=== PATIENT | male | born 1995 | race Caucasian/White ===

== ENCOUNTER 2024-07-08 20:49 | Emergency (ER) | payer OTHER, SELFPAY ==
[2024-07-08 21:05] VITALS: BP 102/59; PULSE 121; RESP 20; TEMP 37.6; O2SAT 98
[2024-07-09 04:10] VITALS: BP 104/68; PULSE 100; RESP 20; TEMP 37.7; O2SAT 97
[2024-07-09 04:14] VITALS: BP 104/68; PULSE 110; RESP 17; O2SAT 96
--- OUTSIDE RECORDS SUMMARY | 2024-07-09 04:30 | XMS_ITS | Encounter Summary ---
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
--- OUTSIDE RECORDS SUMMARY | 2024-07-09 04:30 | XMS_ITS | Encounter Summary ---
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 Gender Identity Not on file Sexual Orientation Not on file documented as of this encounter Plan of Treatment Not on file documented as of this encounter Visit Diagnoses Not on filedocumented in this encounter Additional Health Concerns Infection Onset Date Last Indicated Resolved Time COVID-19 Rule Out 05/23/2021 05/23/2021 05/24/2021 11:08 PM HOME SCHOOL COORDINATOR documented as of this encounter Care Teams Dumping Machine Operator Relationship Specialty Start Date End Date Gloria Dumont DO [address] [place] [address] PCP - General FAMILY PRACTICE 12/04/18 documented as of this encounter
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
--- OUTSIDE RECORDS SUMMARY | 2024-07-09 04:30 | XMS_ITS | Clinical Summary ---
Author Organization [facility] Address [address] [place] [id number] Care Team Providers Care Fluid Power Mechanic Name Role Phone DumontGloria french DO Primary Care Provider [phone]- [phone] Allergies Active Allergy Reactions Criticality Noted Date Comments Prochlorperazine Unknown 05/30/2021 Sumatriptan Nausea and Vomiting 05/30/2021 Nsaids GI Bleed 05/30/2021 Only has allergy to PO NSAIDS. Carisoprodol Palpitations,Tachyca rdi a Low 05/30/2021 Tramadol Unknown 05/30/2021 Triptans Nausea and Vomiting 05/30/2021 Medications omeprazole 40 MG capsule Take 1 capsule (40 mg total) by mouth daily. 1 11/07/2018 Active pregabalin (LYRICA) 100 MG capsule Take 1 capsule (100 mg total) by mouth 2 (two) times daily. 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 Gender Identity Not on file Sexual Orientation Not on file Last Filed Vital Signs Vital Sign Reading Time Taken Comments Blood Pressure 131/81 08/03/2022 8:50 PM CDT Pulse 96 08/03/2022 8:50 PM CDT Temperature 36.5 C (97.7 F) 08/03/2022 6:38 PM CDT Respiratory Rate 15 08/03/2022 8:50 PM CDT Oxygen Saturation 97% 08/03/2022 8:50 PM CDT Inhaled Oxygen Concentration - - Weight 108.9 kg (240 lb) 08/03/2022 6:38 PM CDT Height 175.3 cm (5' 9 ) 08/03/2022 6:38 PM CDT Body Mass Index 35.44 08/03/2022 6:38 PM CDT Plan of Treatment Health Maintenance Due Date Last Done Comments Annual Physical 01/17/1996 Hepatitis C 2011 Hepatitis B Vaccines (1 of 3 - 19+ 3-dose series) 01/17/2012 DTaP, Tdap and Td Vaccines ( 2 - Td or Tdap) 09/08/2021 09/09/2011 COVID-19 Vaccine (2 - 2023-2 5 season) 2024 09/29/2020 Influenza Adult (#1) 2024 02/01/2012, 01/31/2012, 02/24/2011 Meningococcal Vaccine Completed 09/09/2011 HPV Vaccines Aged Out No longer eligi ble based on patient's age to complete this topic Meningococcal B Vaccine Aged Out No l onger eligible based on patient's age to complete this topic Pneumococcal Vaccine: Pediatrics (0 to 5 Years) and At-Risk Patients (6 to 64 Years) Aged Out No longer eligible b ased on patient's age to complete this topic RSV Immunizations Under 20 Months Aged Out No longer eligible b ased on patient's age to complete this topic Goals Goal Patient Goal Type Associated Problems Recent Progress Patient-Stated? Author Patient will return to prior living situation and remain independent in ADLs upon discharge from hospital General Claribel Lynch RN Medical Devices Implanted Type Area Wire Mesh Filter Fabricator Device Identifier Shelf Expiration Date Model / Serial / Lot [place] Suture 2.3mm 2 Iconix [facility] - [id number] Implanted:Qty : 1 on 05/24/2021 by Elias Aguero MD at [facility] [place] Right: Shoulder [employer] - DIV [id number] 01/20/2023 [id number] / / [id number] 4.0 Mm Locking Screws Self Tapping Implanted:Qty : 1 on 05/24/2021 by Elias Aguero MD at [facility] Right: Shoulder [employer] DIV [employer] DIPESH [id number] / N/A / N/A 4.0 Mm Locking Screw Implanted:Qty : 1 on 05/24/2021 by Elias Aguero MD at [facility] Right: Shoulder [employer] - DIV [employer] DIPESH [id number] / N/A / N/A 4.0 Mm Locking Screw Implanted:Qty : 1 on 05/24/2021 by Elias Aguero MD at [facility] Right: Shoulder [employer] - DIV [employer] DIPESH [id number] / N/A / N/A 4.0 Mm Locking Screw Self Tapping Implanted:Qty : 1 on 05/24/2021 by Elias Aguero MD at [facility] Right: Shoulder [employer] - DIV [employer] DIPESH [id number] / N/A / N/A 3.5 Mm Cortical Screw, Self Tapping Implanted:Qty : 1 on 05/24/2021 by Elias Aguero MD at [facility] Right: Shoulder [employer] - DIV [employer] DIPESH [id number] / N/A / N/A 4.0 Mm Locking Screws Self Tapping Implanted:Qty : 1 on 05/24/2021 by Elias Aguero MD at [facility] Right: Shoulder [employer] - DIV [employer] DIPESH [id number] / / 3.5 Mm Locking Screw Implanted:Qty : 2 on 05/24/2021 by Elias Aguero MD at [facility] Right: Shoulder [employer] - DIV [employer] DIPESH [id number] / / 4.0 Cancellous Screw Implanted:Qty : 1 on 05/24/2021 by Elias Aguero MD at [facility] Right: Shoulder [employer] - DIV [employer] DIPESH [id number] / / Iconix Speed [place] Suture 2.3 Implanted:Qty : 1 on 05/24/2021 by Elias Aguero MD at [facility] Right: Shoulder [employer] - DIV [employer] DIPESH [id number] 07/24/2021 [id number] / / [id number] Proximal Lateral Humerus Plate 4- Hole Implanted:Qty : 1 on 05/24/2021 by Elias Aguero MD at [facility] Right: Shoulder [employer] - DIV [employer] DIPESH [id number] / N/A / N/A 4.0mm Locking Screws Self Tapping Implanted:Qty : 1 on 05/24/2021 by Elias Aguero MD at [facility] Right: Shoulder [employer] - DIV [employer]LE[employer] DIPESH [id number] / N/A / N/A Explanted Type Area Wire Mesh Filter Fabricator Device Identifier Shelf Expiration Date Model / Serial / Lot Drill Bit Iconix 2.3 - [id number] Explanted:Qty: 1 on 05/24/2021 at [facility] [place] Right: Shoulder [employer] - DIV [employer]LEEN DIPESH [id number] 03/31/2022 [id number] / / [id number] Drill Bit Explanted:Qty: 2 on 05/24/2021 at [facility] Right: Shoulder [employer] - DIV [employer] DIPESH [id number] / N/A / N/A Drill Bit Explanted:Qty: 1 on 05/24/2021 by Elias Aguero MD at [facility] Right: Shoulder [employer] - DIV [employer] DIPESH [id number] / N/A / N/A K-Wire Explanted:Qty: 5 on 05/24/2021 by Elias Aguero MD at [facility] Right: Shoulder [employer] - DIV [employer] DIPESH [id number] / N/A / N/A K-Wire Explanted:Qty: 2 on 05/24/2021 by Elias Aguero MD at [facility] Right: Shoulder [employer] - DIV [employer] DIPESH [id number] / N/A / N/A Insurance [employer] Care Teams Fluid Power Mechanic Relationship Specialty Start Date End Date Gloria Dumont DO [address] [place], [place] [id number] PCP - General FAMILY PRACTICE 12/04/18
--- OUTSIDE RECORDS SUMMARY | 2024-07-09 04:30 | XMS_ITS | Encounter Summary ---
Author Organization [facility] Address [address] [place] [id number] Care Team Providers Care Instructional Writer Name Role Phone Gloria Dumont DO Primary Care Provider [phone]- [phone] Encounter Details Date Type Department Care Team (Latest Contact Info) Description 03/21/[address] 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
[2024-07-09 04:41] LABS: Basophils Percent Auto 0.2 % (0.2-1.2); Eosinophils Percent Auto 0.1 % (0-4.4); Hematocrit 44.1 % (42.0-52.0); Hemoglobin 15.4 g/dL (14.0-18.0); Immature Granulocyte Absolute 0.05 K/mm3 (0.00-0.031); Immature Granulocyte Percent A 0.4 % (0-0.5); Lymphocytes Absolute Auto 0.68 K/mm3 (0.9-3.2); Lymphocytes Percent Auto 5.6 % (18.3-44.2); Mean Corpuscular HGB Conc 34.9 g/dl (32-36); Mean Corpuscular Hemoglobin 30.3 pg (26-34); Mean Corpuscular Volume 86.8 fl (80-100); Mean Platelet Volume 10.2 fl (7.4-10.4); Monocytes Absolute Auto 0.6 K/mm3 (0.1-0.6); Monocytes Percent Auto 4.9 % (2.6-8.5); Neutrophils Absolute Auto 10.8 K/mm3 (1.3-6.7); Neutrophils Percent Auto 88.8 % (45.5-73.1); Platelet Count Result 320 k/mm3 (150-375); Red Blood Count 5.08 M/mm3 (4.6-6.20); Red Cell Distribution Width 12.6 % (11.5-14.5); White Blood Count 12.1 K/mm3 (4.5-10.0)
[2024-07-09] MEDS: LACTATED RINGERS 1,000 ML 999 ML IV CONT (04:43)
[2024-07-09] MEDS: DICYCLOMINE HCL INJ 20 MG/2 ML VIAL IM (04:43)
--- NOTE | 2024-07-09 04:44 | ED_ITS ---
HPI - Nausea/Vomiting/Diarrhea General Chief complaint: Nausea/Vomiting/Diarrhea Stated complaint: N/V/D x12 hours Time Seen by Provider: 07/09/24 04:08 History of Present Illness HPI Narrative: 29-year-old male with a past medical history including chronic psychiatric illness, presenting from skilled nurse facility where he resides while he is being placed into a permanent psychiatric presents. Patient presents today with nausea, vomiting, diarrhea, myalgias and lower abdominal cramping. Get the pneumococcal vaccine on Tuesday and his symptoms started after this. Endorses feeling nauseous and vomiting several times as well as having loose watery diarrhea. No around with sick contacts. No cough, congestion, chest pain, shortness a breath, fever, chills, headache or vision changes. Was otherwise in his normal state of health. Has had new dietary changes at the facility that he stays at but no other new changes or introductions medications to his knowledge. Related Data Allergies Allergy/AdvReac Type Severity Reaction Status Date / Time prochlorperazine (From Allergy Unknown Other Verified 07/09/24 04:13 Compazine) [id number] Antimigraine Allergy Unknown Other Verified 07/09/24 04:13 Agents NSAIDS (Non-Steroidal AdvReac Severe Other Verified 07/09/24 04:13 Anti-Inflamma muscle relaxers AdvReac Unknown Other Uncoded 07/09/24 04:13 Review of Systems 2 Review of Systems: As reviewed above in HPI Exam 2 Narrative: GENERAL: [Well-appearing, well-nourished, and in no acute distress.] HEAD: [Normocephalic, atraumatic.] EYES: [PERRLA and EOMI.] ENT: Nares clear, no rhinorrhea or epistaxis. Mucous membranes moist. NECK: Supple. CHEST: [Clear to auscultation. No respiratory distress.] HEART: [Regular rate and rhythm]. No murmur heard. [Normal peripheral pulses.] ABDOMEN: [Soft, nondistended], [nontender], [No rigidity or guarding] EXTREMITIES: Normal range of motion. [No edema.] SKIN: Warm, dry, no rash. NEURO: [No focal deficits]. Alert and oriented [x3.] PSYCH: [Normal mood and affect.] Course Vital Signs Vital signs: Vital Signs Temperature 37.6 C H 07/08/24 21:05 Pulse Rate 121 H 07/08/24 21:05 Respiratory Rate 20 07/08/24 21:05 Blood Pressure 102/59 L 07/08/24 21:05 Pulse Oximetry 98 07/08/24 21:05 Temperature 37.7 C H 07/09/24 04:10 Pulse Rate 86 07/09/24 06:11 Respiratory Rate 17 07/09/24 06:11 Blood Pressure 104/63 07/09/24 06:11 Pulse Oximetry 95 07/09/24 06:11 Oxygen Delivery Room Air 07/09/24 04:10 MDM - Nausea/Vomiting/Diarrhea MDM Narrative Medical decision making narrative: 29-year-old otherwise medically healthy male with a past medical history including chronic psychiatric illness presenting to the emergency room with nausea, vomiting, diarrhea and flu-like symptoms. Raising at the pneumococcal vaccine on Tuesday with the symptoms starting onset after this. Endorses feeling dehydrated, retching with vomiting as well as having loose watery stools for several days. Endorses abdominal cramping but has a soft nontender abdomen without any signs of peritonitis or distension. Considerations presently for gastroenteritis, viral syndrome, potential vaccine reaction with flu-like symptoms. Low suspicion intra-abdominal process such as appendicitis or diverticulitis. He is mildly tachycardic but likely from dehydration. No other vital concerns such as hypoxic, fever, blood pressure concerns. Will obtain laboratory studies including CBC, CMP, lipase, urinalysis. He was given Bentyl, fluid bolus, Zofran and morphine with reassessment frequently. Workup shows minor leukocytosis of 12.1 likely reactive to the nausea and vomiting. Normal hemoglobin, normal platelet count. Electrolytes with normal limits, normal renal and hepatic function panel, normal glucose. Negative lipase. Negative urinalysis for infection. Negative viral panel. Patient was re-evaluated with improvement in his pain after medications. His vital signs have improved. No longer tachycardic, normal blood pressure. Afebrile 95% on room air. Patient is safe and stable for discharge home at this time with medications including Bentyl and Zofran for as needed control of his symptoms for likely gastroenteritis. He was given return precautions regular PCP follow-up. Medical Records Attestation: I reviewed the patient's medical records. Lab Data Attestation: I reviewed the patient's lab results. 07/09/24 04:35 07/09/24 04:35 Labs: Lab Results 07/09/24 07/09/24 07/09/24 Range/Units 04:35 04:42 06:30 WBC 12.1 H (4.5-10.0) K/mm3 RBC 5.08 (4.6-6.20) M/mm3 Hgb 15.4 (14.0-18.0) g/dL Hct 44.1 (42.0-52.0) % MCV 86.8 (80-100) fl MCH 30.3 (26-34) pg MCHC 34.9 (32-36) g/dl RDW 12.6 (11.5-14.5) % Plt Count 320 (150-375) k/mm3 MPV 10.2 (7.4-10.4) fl Immature Gran % (Auto) 0.4 (0-0.5) % Neut % (Auto) 88.8 H (45.5-73.1) % Lymph % (Auto) 5.6 L (18.3-44.2) % [place] % (Auto) 4.9 (2.6-8.5) % Eos % (Auto) 0.1 (0-4.4) % Baso % (Auto) 0.2 (0.2-1.2) % Lymph # (Auto) 0.68 L (0.9-3.2) K/mm3 [place] # (Auto) 0.6 (0.1-0.6) K/mm3 Eos # (Auto) 0.0 (0-0.3) K/mm3 Baso # (Auto) 0.0 (0.0-0.1) K/mm3 Abs Immat Gran (auto) 0.05 H (0.00-0.031) K/mm3 Absolute Neuts (auto) 10.8 H (1.3-6.7) K/mm3 Absolute Nucleated RBC 0.000 (0.0-0.012) K/mm3 Nucleated RBC % 0.0 (0.0-0.2) % Sodium 138 (137-145) mmol/L Potassium 3.5 (3.4-5.0) mmol/L Chloride 104 (98-107) mmol/L Carbon Dioxide 22 (22-30) mmol/L Anion Gap 12 (4-12) mmol/L BUN 13 (9-20) mg/dL Creatinine 0.80 (0.7-1.3) mg/dL Estim Creat Clear Calc 131 ml/min Estimated GFR > 60 (59 - ) Glucose 98 (65-110) mg/dL Calcium 9.1 (8.4-10.2) mg/dL Total Bilirubin 0.9 (0.2-1.3) mg/dL AST 27 (17-59) U/L ALT 41 (6-50) U/L Alkaline Phosphatase 102 (38-126) U/L Total Protein 7.0 (6.3-8.2) g/dL Albumin 4.1 (3.5-5.1) g/dL Lipase 43 (23-300) U/L Urine Color Yellow (Yellow) Urine Appearance Clear (Clear) Urine pH 5.5 (5.0-9.0) Ur Specific [place] 1.023 (1.001-1.035) Urine Protein Negative (Negative) mg/dL Urine Glucose (UA) Negative (Negative) mg/dL Urine Ketones Negative (Negative) mg/dL Ur Blood (Man) Negative (Negative) Urine Nitrate Negative (Negative) Urine Bilirubin Negative (Negative) Urine Urobilinogen 0.2 (<2.0) mg/dL Leukocyte Esterase Rfl Negative (Negative) ANDRÉS/UL Influenza A (RT-PCR) Negative (Negative) Influenza B (RT-PCR) Negative (Negative) RSV (RT-PCR) Negative (Negative) SARS-CoV-2 RNA (RT-PCR) Negative (Negative) Discharge Plan Discharge Clinical Impression: Gastroenteritis, Dehydration, Nausea & vomiting, Diarrhea Patient Disposition: Home, Self-Care Condition: Stable Instructions: Antibiotic Form, Dehydration (ED), Clear Liquid Diet (ED), Gastroenteritis (ED) Additional Instructions: Your symptoms are consistent with gastroenteritis or other viral syndrome. Your workup is rather reassuring, no signs of organ dysfunction organ damage, no COVID, flu. Could be secondary to the recent vaccine the received or other nonspecific viral cause. We will send you home with some pain control medications, follow-up with regular doctor, return with any concerns. Patient Language: Wolof Prescriptions: New loperamide [Anti-Diarrheal (loperamide)] 2 mg capsule 2 mg PO Q6H PRN (Reason: loose stool) Qty: 14 0RF dicyclomine 20 mg tablet 20 mg PO TID PRN (Reason: abdominal pain) Qty: 20 0RF ondansetron 4 mg tablet,disintegrating 4 mg PO Q8H PRN (Reason: nausea and vomiting) Qty: 10 0RF Follow-up/Referrals: UNKNOWN,DOCTOR [Primary Care Provider] - Time of Disposition: 06:59
[2024-07-09 04:53] LABS: Alanine Aminotransferase 41 U/L (6-50); Albumin Level 4.1 g/dL (3.5-5.1); Alkaline Phosphatase 102 U/L (38-126); Anion Gap 12 mmol/L (4-12); Aspartate Amino Transferase 27 U/L (17-59); Bilirubin,Total 0.9 mg/dL (0.2-1.3); Blood Urea Nitrogen 13 mg/dL (9-20); Calcium 9.1 mg/dL (8.4-10.2); Carbon Dioxide 22 mmol/L (22-30); Chloride 104 mmol/L (98-107); Estimated CRCL calculation 131 ml/min; Estimated Glomerular Filt Rate > 60; Glucose 98 mg/dL (65-110); Lipase 43 U/L (23-300); Potassium 3.5 mmol/L (3.4-5.0); Sodium 138 mmol/L (137-145)
[2024-07-09] MEDS: ONDANSETRON INJ 4 MG/2 ML VIAL IV PUSH (04:54)
[2024-07-09] MEDS: MORPHINE SULFATE (*CRX) 4 MG/ML INJ IV PUSH (04:54)
[2024-07-09 05:26] LABS: Influenza A QL RT-PCR Negative (Negative); Influenza B QL RT-PCR Negative (Negative); RSV RNA, RT-PCR Negative (Negative); SARS-CoV-2 RNA PCR Negative (Negative)
[2024-07-09 06:11] VITALS: BP 104/63; PULSE 86; RESP 17; O2SAT 95
[2024-07-09 06:36] LABS: Add Urine Microscopic? NO; Appearance Urine Clear (Clear); Bilirubin Urine Negative (Negative); Blood Urine Negative (Negative); Color Urine Yellow (Yellow); Glucose Urine UA Negative (Negative); Ketones Urine Negative (Negative); Leukocyte Esterase Ur Negative LEU/UL (Negative); Nitrate Urine Negative (Negative); Protein Urine Negative (Negative); Specific Grav Ur 1.023 (1.001-1.035); Urobilinogen Urine 0.2 mg/dL (<2.0); pH Urine 5.5 (5.0-9.0)
--- NOTE | 2024-07-09 06:44 | PC.NURSE ---
Patient states my headache is coming back. ERP notified.
[2024-07-09 07:08] VITALS: BP 115/75; PULSE 100; RESP 17; TEMP 37.2; O2SAT 98
== END 2024-07-09 07:10 | disposition home or self-care (01) ==
PROVIDERS: Emergency Provider Student in an Organized Health Care Education/Training Program
DX: K52.9 Noninfective gastroenteritis and colitis, unspecified (principal); E86.0 Dehydration; Z20.822 Contact with and (suspected) exposure to COVID-19
CPT/HCPCS: 36415; 80053; 81003; 83690; 85025; 87637; 96361; 96372; 96374; 96375; 99284; J0500; J2270; J2405; J7120